=== PATIENT | male | born 1945 | race Caucasian/White ===

== ENCOUNTER 2019-05-27 10:03 | Inpatient (IN) | payer MEDICARE, OTHER ==
[~2019-05-27] VITALS: Ht 182.9 cm; Wt 80.9 kg
[2019-05-27] VITALS (14 sets, daily range): BP systolic 113–141; BP diastolic 68–86
[~2019-05-27 10:03] MED LIST: insulin glargine (Lantus) pen - multi-dose SQ PRN
--- NOTE | 2019-05-27 10:20 | NUR ---
Patient in room ICU 2040. I have received report from ANTWON Hamilton from [facility] and had the opportunity to ask questions and assume patient care.
[2019-05-27] MEDS ORDERED: potassium Cl 2 mEq/ml inj IV ONE (11:00)
[2019-05-27] MEDS ORDERED: MESSAGE TO NURSING PO ONE ×4 (11:05)
[2019-05-27] MEDS ORDERED: dextrose 50%-water 50ml dispensing syringe IV PRN (11:05)
[2019-05-27] MEDS ORDERED: cefazolin/dext.iso 2gm/50ml 50 ML IV ONE (11:05)
[2019-05-27] MEDS ORDERED: phenylephrine 10mg/ml inj. ONE (12:00)
[2019-05-27] MEDS ORDERED: albumin (human) 25% 100 ML IV solution IV ONE (12:00)
[2019-05-27] MEDS ORDERED: LIDOcaine 2% (20 mg/ml) 5ml cardiac syringe ONE (12:00)
[2019-05-27] MEDS ORDERED: MAGNESIUM SULFATE 4 MEQ/ML (5gm/10ml) injection ONE (12:00)
[2019-05-27] MEDS ORDERED: heparin 10,000 units/1 ML INJ ONE (12:00)
[2019-05-27] MEDS ORDERED: heparin 1,000 units/ml 10ml inj ONE (12:00)
[2019-05-27] MEDS ORDERED: aminocaproic acid 250 MG/1 ML inj. ONE (12:00)
[2019-05-27] MEDS ORDERED: sodium bicarbonate (8.4%) 1 mEq/ml syringe ONE (12:00)
[2019-05-27] MEDS ORDERED: calcium chloride 100 MG/1 ML inj IV ONE (12:00)
[2019-05-27 12:01] LABS: HEMATOCRIT 40.8 % (42.0-52.0); MEAN CORPUSCULAR HEMOGLOBIN 33.5 PG (27.0-31.0); MEAN CORPUSCULAR HGB CONC 34.4 g/dL (33.0-36.5); MEAN CORPUSCULAR VOLUME 97.2 FL (78-98); MEAN PLATELET VOLUME 8.1 FL (7.4-10.4); PLATELET COUNT 138 X10'3 (140-440); RED BLOOD COUNT 4.19 X10'6 (4.70-6.10); RED CELL DISTRIBUTION WIDTH 12.8 % (11.5-14.5); WHITE BLOOD COUNT 4.8 X10'3 (4.5-11.0)
[2019-05-27 12:09] LABS: ALBUMIN 3.3 G/DL (3.4-5.0); ANION GAP 6 (8-16); BLOOD UREA NITROGEN 8 MG/DL (7-18); BUN/CREATININE RATIO 8.3 (5.4-32.0); CALCIUM 8.6 MG/DL (8.5-10.1); CHLORIDE 111 MMOL/L (99-107); CREATININE 0.96 MG/DL (0.60-1.10); GLUCOSE 99 MG/DL (70-104); POTASSIUM 4.5 MMOL/L (3.5-5.1); SODIUM 145 MMOL/L (135-145); TOTAL CARBON DIOXIDE 27.7 MMOL/L (24-32); eGFR 77 ML/MIN
[2019-05-27 12:12] LABS: PARTIAL THROMBOPLASTIN TIME 27 SECONDS (22-32)
[2019-05-27 12:14] LABS: HEMOGLOBIN A1C 5.4 % (4.5-6.2)
[2019-05-27 14:24] LABS: CLARITY,URINE CLEAR (Clear); COLOR,URINE STRAW (Yellow); GLUCOSE, URINE NEGATIVE (Neg); KETONES,URINE NEGATIVE (Neg); LEUKOCYTE ESTERASE ,URINE NEGATIVE (Neg); NITRITES, URINE NEGATIVE (Neg); OCCULT BLOOD,URINE NEGATIVE (Neg); PROTEIN,URINE NEGATIVE (Neg); UROBILINOGEN,URINE 0.2 E.U/dL (0.2-1.0)
[2019-05-27 14:31] LABS: UA COLLECTION TYPE NON-SPECIFIED
--- NOTE | 2019-05-27 14:59 | NUR ---
Received pt from [facility] via EMS. pt is awake and alert, oriented x4, sinus yobany, asymptomatic. no c/o chest pain, not in resp distress. right groin site with gauze c/d/i, no drainage noted, no hematoma. doppler pulses obtained to b/l LEs. no c/o numbness and tingling. Dr. Street at bedside with patient and family, updated on plan of care. CABG tmr am. pt tolerating PO diet without nausea or vomiting. voiding clear yellow urine into urinal.
[2019-05-27 15:16] LABS: ABG BASE EXCESS -0.2 mmol/L (-2.0-3.0); ABG HCO3 23.4 mmol/L (22.0-26.0); ABG OXYGEN SATURATION 95.8 % (95-98); ABG PCO2 (T) 35.4 mmHg (35.0-45.0); ABG PH (T) 7.439 (7.350-7.450); ABG PO2 (T) 80.3 mmHg (83-108); FCOHb 0.4 % (0.5-1.5); FMetHb 0.2 % (0.3-1.12); FO2Hb 95.2 % (94-100); RESPIRATORY RATE (OBSERVED) 16 b/min; TOTAL HEMOGLOBIN 14.9 G/dl (14.0-17.9)
[2019-05-27] MEDS ORDERED: NO HOME MEDS (16:24)
--- NOTE | 2019-05-27 18:40 | NUR ---
Problems reprioritized. Patient report given, questions answered & plan of care reviewed with ANTWON Celaya.
[2019-05-27] MEDS ORDERED: metoprolol tartrate 12.5mg (1/2 tablet) PO SCH (20:00)
[2019-05-27] MEDS: gabapentin 400mg capsule PO ONE (20:00)
[2019-05-27] MEDS: mupirocin 2% ointment 22GM NS SCH (20:59)
[2019-05-28] VITALS (22 sets, daily range): BP systolic 94–140; BP diastolic 41–78
[2019-05-28 03:48] LABS: BASOPHILS % (AUTO) 0.4 % (0-1); EOSINOPHILS # (AUTO) 0.2 X10'3 (0-0.9); LYMPHOCYTES # (AUTO) 1.6 X10'3 (1.1-4.8); MONOCYTES # (AUTO) 0.6 X10'3 (0-0.9); PRE OP HEMOGLOBIN 14.2 g/dL (14.0-17.9); RED CELL DISTRIBUTION WIDTH 12.8 % (11.5-14.5)
[2019-05-28 03:54] LABS: EOSINOPHILS % (AUTO) 4.2 % (0-6); LYMPHOCYTES % (AUTO) 28.3 % (21-51); MEAN CORPUSCULAR HEMOGLOBIN 33.1 PG (27.0-31.0); MEAN CORPUSCULAR HGB CONC 34.3 g/dL (33.0-36.5); MEAN CORPUSCULAR VOLUME 96.4 FL (78-98); MEAN PLATELET VOLUME 8.3 FL (7.4-10.4); NEUTROPHILS # (AUTO) 3.2 X10'3 (1.8-7.7); NEUTROPHILS % (AUTO) 57.1 % (42-75); PRE OP HEMATOCRIT 41.4 % (42.0-52.0); PRE OP PLATELET COUNT 131 X10'3 (140-440)
[2019-05-28 04:04] LABS: ALBUMIN 3.1 G/DL (3.4-5.0); ANION GAP 5 (8-16); BLOOD UREA NITROGEN 10 MG/DL (7-18); BUN/CREATININE RATIO 10.1 (5.4-32.0); CALCIUM 8.8 MG/DL (8.5-10.1); CHLORIDE 109 MMOL/L (99-107); CREATININE 0.99 MG/DL (0.60-1.10); GLUCOSE 102 MG/DL (70-104); SODIUM 143 MMOL/L (135-145); TOTAL CARBON DIOXIDE 28.9 MMOL/L (24-32); eGFR 74 ML/MIN
[2019-05-28 04:30] LABS: PRE OP PROTIME 10.5 SECONDS (9.0-12.0)
[2019-05-28] MEDS ORDERED: ROPIVAcaine 0.5% (5mg/ml) 30ml vial ONE (05:02)
[2019-05-28] MEDS ORDERED: vancomycin/NS 1 GM ADD-VANTAGE 250 ML IV ONE (05:30)
[2019-05-28] MEDS ORDERED: insulin glargine (Lantus) pen - multi-dose SQ PRN (05:30)
[2019-05-28] MEDS: mupirocin 2% ointment 22GM NS SCH (05:30)
[2019-05-28] MEDS ORDERED: insulin regular, human 100 UNIT in normal saline 100ml IV soln 100 ML IV SCH ×2 (05:30)
[2019-05-28] MEDS ORDERED: NUT.TX.IMPAIRED DIGEST FXN (Ensure Clear) 237 ML PO ONE (05:30)
[2019-05-28] MEDS ORDERED: cefazolin/dext.iso 2gm/50ml 50 ML IV ONE (05:30)
[2019-05-28] MEDS ORDERED: famotidine 20mg tablet PO ONE (06:00)
[2019-05-28] MEDS ORDERED: LORazepam 2 mg/ml vial IV ONE (06:00)
[2019-05-28] MEDS ORDERED: papaverine 30 mg/ml 2ml inj. IA ONE (06:02)
[2019-05-28] MEDS ORDERED: heparin 10,000 units/1 ML INJ IR ONE (06:02)
[2019-05-28] MEDS: gabapentin 400mg capsule PO ONE (06:05)
--- NOTE | 2019-05-28 06:40 | NUR ---
Patient in room ICU 2040. I have received report from MANOLO and had the opportunity to ask questions and assume patient care. CVOR HERE- CONSENTS SIGNED. ATIVAN GIVEN. PT AWAKE AND ALERT. AT BS. TO OR BY BED
[2019-05-28] MEDS ORDERED: sevoflurane 250ml liquid IH ONE (06:56)
[2019-05-28] MEDS ORDERED: protamine sulf. 10mg/ml inj. IV ONE (06:56)
[2019-05-28] MEDS ORDERED: rocuronium 10mg/ml inj IV ONE ×4 (06:56→10:42)
[2019-05-28] MEDS ORDERED: midazolam 2 mg/2 ml injection ONE ×2 (06:59)
[2019-05-28] MEDS ORDERED: SUFENTANIL CITRATE 50 MCG/ML 2ml ampule IV ONE (06:59)
[2019-05-28 07:40] LABS: ABG BASE EXCESS -1.9 mmol/L (-2.0-3.0); ABG HCO3 21.9 mmol/L (22.0-26.0); ABG OXYGEN SATURATION 99.4 % (95-98); ABG PCO2 34.6 mmHg (35.0-45.0); ABG PH 7.419 (7.350-7.450); ABG PO2 318.5 mmHg (60.0-100.0); CL (ABG) 105 mmol/L (99-107); FCOHb 0.8 % (0.5-1.5); FMetHb 0.3 % (0.3-1.12); FO2Hb 98.3 % (94-100); GLUCOSE (ABG) 105 mg/dl (70-104); IONIZED CA (ABG) 1.16 mmol/L (1.03-1.32); K (ABG) 4.1 mmol/L (3.3-5.1); NA (ABG) 138 mmol/L (135-145); TOTAL HEMOGLOBIN 13.6 G/dl (14.0-17.9)
[2019-05-28 08:26] LABS: ABG HCO3 VENOUS 23.7 mmol/L; ABG PCO2 VENOUS 48.9 mmHg; ABG PO2 VENOUS 51.7 mmHg; CL (ABG) 104 mmol/L (99-107); FCOHb VENOUS 0.9 %; FHHb VENOUS 16.4 %; FMetHb VENOUS 0.3 %; FO2Hb VENOUS 82.4 %; GLUCOSE (ABG) 107 mg/dl (70-104); IONIZED CA (ABG) 1.15 mmol/L (1.03-1.32); K (ABG) 4.1 mmol/L (3.3-5.1); NA (ABG) 137 mmol/L (135-145); TOTAL HEMOGLOBIN 13.3 G/dl (14.0-17.9)
[2019-05-28 08:40] LABS: ABG BASE EXCESS -1.1 mmol/L (-2.0-3.0); ABG HCO3 23.3 mmol/L (22.0-26.0); ABG PCO2 37.4 mmHg (35.0-45.0); ABG PH 7.412 (7.350-7.450); ABG PO2 379.8 mmHg (60.0-100.0); CL (ABG) 102 mmol/L (99-107); FCOHb 0.3 % (0.5-1.5); FMetHb 0.2 % (0.3-1.12); FO2Hb 98.5 % (94-100); GLUCOSE (ABG) 115 mg/dl (70-104); IONIZED CA (ABG) 0.96 mmol/L (1.03-1.32); NA (ABG) 137 mmol/L (135-145); TOTAL HEMOGLOBIN 10.9 G/dl (14.0-17.9)
[2019-05-28 09:06] LABS: ABG BASE EXCESS -1.2 mmol/L (-2.0-3.0); ABG HCO3 22.9 mmol/L (22.0-26.0); ABG OXYGEN SATURATION 99.2 % (95-98); ABG PCO2 36.3 mmHg (35.0-45.0); ABG PH 7.418 (7.350-7.450); ABG PO2 359.1 mmHg (60.0-100.0); CL (ABG) 103 mmol/L (99-107); FCOHb 0.3 % (0.5-1.5); FMetHb 0.1 % (0.3-1.12); FO2Hb 98.8 % (94-100); GLUCOSE (ABG) 136 mg/dl (70-104); IONIZED CA (ABG) 1.06 mmol/L (1.03-1.32); K (ABG) 5.6 mmol/L (3.3-5.1); NA (ABG) 135 mmol/L (135-145); TOTAL HEMOGLOBIN 11.6 G/dl (14.0-17.9)
[2019-05-28 09:45] LABS: ABG BASE EXCESS 0.4 mmol/L (-2.0-3.0); ABG HCO3 25.9 mmol/L (22.0-26.0); ABG OXYGEN SATURATION 99.2 % (95-98); ABG PCO2 45.1 mmHg (35.0-45.0); ABG PH 7.377 (7.350-7.450); ABG PO2 343.1 mmHg (60.0-100.0); CL (ABG) 103 mmol/L (99-107); FCOHb 0.2 % (0.5-1.5); FMetHb 0.1 % (0.3-1.12); FO2Hb 98.9 % (94-100); GLUCOSE (ABG) 152 mg/dl (70-104); IONIZED CA (ABG) 1.06 mmol/L (1.03-1.32); K (ABG) 5.4 mmol/L (3.3-5.1); NA (ABG) 136 mmol/L (135-145); TOTAL HEMOGLOBIN 11.8 G/dl (14.0-17.9)
[2019-05-28] MEDS ORDERED: MESSAGE TO NURSING PO ONE (10:00)
[2019-05-28 10:30] LABS: ABG BASE EXCESS VENOUS -0.5 mmol/L; ABG HCO3 VENOUS 24.7 mmol/L; ABG PCO2 VENOUS 42.8 mmHg; ABG PO2 VENOUS 40.1 mmHg; CL (ABG) 104 mmol/L (99-107); FCOHb VENOUS 0.9 %; FHHb VENOUS 25.3 %; FMetHb VENOUS 0.4 %; FO2Hb VENOUS 73.4 %; GLUCOSE (ABG) 160 mg/dl (70-104); IONIZED CA (ABG) 1.22 mmol/L (1.03-1.32); K (ABG) 4.8 mmol/L (3.3-5.1); NA (ABG) 135 mmol/L (135-145)
[2019-05-28] MEDS ORDERED: acetaminophen 1,000mg/100ml IV 100 ML IV ONE (10:36)
[2019-05-28] MEDS ORDERED: propofol inj 20 ML IV ONE (10:42)
[2019-05-28] MEDS ORDERED: pantoprazole 40 MG vial IV ONE (10:55)
[2019-05-28] MEDS ORDERED: sodium phosphate inj. 15 MMOL in dextrose 5%-water 150 ML IV PRN (10:55)
[2019-05-28] MEDS ORDERED: sodium phosphate inj. 30 MMOL in dextrose 5%-water 250 ML IV PRN (10:55)
[2019-05-28] MEDS ORDERED: magnesium hydroxide 30ml (MOM) UD suspension PO PRN (10:55)
[2019-05-28] MEDS ORDERED: niCARDipine-NS 40mg/200ml IVPB 200 ML IV PRN (10:55)
[2019-05-28] MEDS ORDERED: metoclopramide 5 mg/ml inj IV PRN (10:55)
[2019-05-28] MEDS ORDERED: magnesium 2GM in 50ml NS 50 ML IV PRN (10:55)
[2019-05-28] MEDS ORDERED: Neutra Phos packet PO PRN (10:55)
[2019-05-28] MEDS ORDERED: dextrose 50%-water 50ml dispensing syringe IV PRN (10:55)
[2019-05-28] MEDS ORDERED: DOPamine 400mg/D5W 250ml 250 ML IV PRN (10:55)
[2019-05-28] MEDS ORDERED: nitroGLYCERIN-Tridil 50MG/D5W 250 ML IV PRN (10:55)
[2019-05-28] MEDS ORDERED: acetaminophen 325mg tablet PO PRN (10:55)
[2019-05-28] MEDS ORDERED: HYDROcodone/acetaminophen 10/325mg tab PO PRN (10:55)
[2019-05-28] MEDS ORDERED: potassium Cl 20 mEq SR tablet PO PRN (10:55)
[2019-05-28] MEDS ORDERED: ondansetron/PF 4mg/2ml inj IV PRN (10:55)
[2019-05-28] MEDS ORDERED: morphine 4 MG/ML inj SYRINge IV PRN ×2 (10:55)
[2019-05-28] MEDS: insulin regular, human inj. 100 UNITS in normal saline 100ml IV soln 100 ML IV SCH ×2 (10:55)
[2019-05-28] MEDS ORDERED: sodium chloride 0.45% 1,000 ML IV SCH (10:55)
[2019-05-28] MEDS ORDERED: normal saline 250ml IV soln 250 ML IV PRN (10:55)
[2019-05-28] MEDS ORDERED: magnesium 4gm in 100ml NS 100 ML IV PRN (10:55)
--- NOTE | 2019-05-28 11:00 | NUR ---
Received to room [], accompanied by MDs [] and surgical crew. Placed on ventilator, to nurse monitoring, arterial line and PA line pressure monitored. Chest tubes to suction at 20 cm. Hendrickson cath to gravity drainage. Dressings are dry and intact. See assessment record. All vasoactive drugs are infusing via central line.
--- NOTE | 2019-05-28 11:17 | NUR ---
Nutrition consult: Pt s/p CABG x 4 today. Will need nutrition therapy education prior to discharge once stable. Will continue to follow. Addendum: 05/28/19 at [address] Amended: Links added.
[2019-05-28 11:21] LABS: ABG BASE EXCESS -8.3 mmol/L (-2.0-3.0); ABG HCO3 15.8 mmol/L (22.0-26.0); ABG OXYGEN SATURATION 98.4 % (95-98); ABG PCO2 (T) 28.7 mmHg (35.0-45.0); ABG PO2 (T) 171.2 mmHg (83-108); FCOHb 0.3 % (0.5-1.5); FLOW 40 L/min; FMetHb 0.2 % (0.3-1.12); FO2Hb 97.9 % (94-100); MINUTE VOLUME 7 L/min; PEEP 5 cm H2O; RESPIRATORY RATE 12 b/min; RESPIRATORY RATE (OBSERVED) 12 b/min; TIDAL VOLUME 500 mL; TOTAL HEMOGLOBIN 11.5 G/dl (14.0-17.9)
[2019-05-28] MEDS: albumin (Human) 5% 250ml 250 ML IV PRN ×3 (11:28→16:23)
[2019-05-28 11:31] LABS: BASOPHILS % (AUTO) 0.1 % (0-1); EOSINOPHILS # (AUTO) 0.1 X10'3 (0-0.9); EOSINOPHILS % (AUTO) 0.8 % (0-6); HEMATOCRIT 39.5 % (42.0-52.0); HEMOGLOBIN 13.6 g/dl (14.0-17.9); LYMPHOCYTES # (AUTO) 0.7 X10'3 (1.1-4.8); LYMPHOCYTES % (AUTO) 7.4 % (21-51); MEAN CORPUSCULAR HEMOGLOBIN 33.2 PG (27.0-31.0); MEAN CORPUSCULAR HGB CONC 34.3 g/dL (33.0-36.5); MEAN CORPUSCULAR VOLUME 96.8 FL (78-98); MONOCYTES # (AUTO) 0.5 X10'3 (0-0.9); MONOCYTES % (AUTO) 5.4 % (2-12); NEUTROPHILS # (AUTO) 8.2 X10'3 (1.8-7.7); NEUTROPHILS % (AUTO) 86.3 % (42-75); PLATELET COUNT 89 X10'3 (140-440); RED BLOOD COUNT 4.08 X10'6 (4.70-6.10); RED CELL DISTRIBUTION WIDTH 12.4 % (11.5-14.5); WHITE BLOOD COUNT 9.5 X10'3 (4.5-11.0)
[2019-05-28 11:38] LABS: ALANINE AMINOTRANSFERASE 22 U/L (12-78); ALBUMIN 2.6 G/DL (3.4-5.0); ALBUMIN/GLOBULIN RATIO 1.3 (1.1-1.5); ALKALINE PHOSPHATASE 33 IU/L (46-116); ANION GAP 7 (8-16); ASPARTATE AMINO TRANSFERASE 26 U/L (10-37); BILIRUBIN,TOTAL 0.6 MG/DL (0.1-1.0); BLOOD UREA NITROGEN 10 MG/DL (7-18); BUN/CREATININE RATIO 11.5 (5.4-32.0); CALCIUM 9.6 MG/DL (8.5-10.1); CHLORIDE 109 MMOL/L (99-107); CREATININE 0.87 MG/DL (0.60-1.10); GLUCOSE 160 MG/DL (70-104); MAGNESIUM 2.9 MG/DL (1.5-2.4); PHOSPHORUS 2.8 MG/DL (2.3-4.5); POTASSIUM 3.9 MMOL/L (3.5-5.1); SODIUM 141 MMOL/L (135-145); TOTAL CARBON DIOXIDE 25.1 MMOL/L (24-32); TOTAL PROTEIN 4.6 G/DL (6.4-8.2); eGFR 86 ML/MIN
[2019-05-28 11:39] LABS: PARTIAL THROMBOPLASTIN TIME 33 SECONDS (22-32)
[2019-05-28] MEDS: insulin Lispro (HumaLOG) vial - multi-dose SQ SCH ×2 (13:00→15:11)
--- NOTE | 2019-05-28 13:00 | NUR ---
pa pressures and cvp slightly improved after 2 bottles of albumin. dopamine on- up and down for decreaded bp when pt awake and anxious. hr occ to 59. pt opens eyes and nods to no pain- reoriented. then back to sleep.
[2019-05-28] MEDS: potassium Cl 20mEq/100mL bag 100 ML IV PRN ×2 (13:12→15:09)
[2019-05-28] MEDS: gabapentin 300mg capsule PO SCH ×2 (13:12→21:26)
[2019-05-28] MEDS: ceFAZolin 1GM/D5W- ADD-VANTAGE 50 ML IV SCH ×2 (15:11→23:59)
--- NOTE | 2019-05-28 16:00 | NUR ---
pt awake to speech, calm, denies pain- repositioned- on spont. dopamine up and down for bp, ci 3.2, pressures down- 3rd albumin given
[2019-05-28 16:56] LABS: ABG BASE EXCESS -6.3 mmol/L (-2.0-3.0); ABG HCO3 18.1 mmol/L (22.0-26.0); ABG OXYGEN SATURATION 94.8 % (95-98); ABG PCO2 (T) 32.1 mmHg (35.0-45.0); ABG PH (T) 7.369 (7.350-7.450); FCOHb 0.2 % (0.5-1.5); FMetHb 0.2 % (0.3-1.12); FO2Hb 94.4 % (94-100); MINUTE VOLUME 7 L/min; PEEP 5 cm H2O; TIDAL VOLUME 534 mL; TOTAL HEMOGLOBIN 10.5 G/dl (14.0-17.9)
--- NOTE | 2019-05-28 17:00 | NUR ---
update to dr ni by phone re adequate ci of 3.2 with decreased bp of 90's up to 115 with 3rd albumin and dopamine at 3 to 5 mcg. dopamine changed to levophed from 3 to 1mcg. abgs given to dr ni- aware of hco2 of 18- ok to wxtubate with the abgs reportd
[2019-05-28] MEDS ORDERED: NORepinephrine 8mg/ 250ml NS 250 ML IV ONE (17:04)
--- NOTE | 2019-05-28 17:51 | NUR ---
ABG VALUES GIVEN TO MD DR MIN AND EXTUBATION ORDERS GIVEN OVER PHONE TO ANTWON HAYES Addendum: 05/28/19 at 1751 by Bertha Carballo RT Amended: Links added.
[2019-05-28 18:04] LABS: BASOPHILS % (AUTO) 0 % (0-1); EOSINOPHILS % (AUTO) 0 % (0-6); HEMOGLOBIN 10.7 g/dl (14.0-17.9); LYMPHOCYTES # (AUTO) 0.3 X10'3 (1.1-4.8); LYMPHOCYTES % (AUTO) 2.2 % (21-51); MEAN CORPUSCULAR HGB CONC 34.5 g/dL (33.0-36.5); MEAN CORPUSCULAR VOLUME 95.7 FL (78-98); MEAN PLATELET VOLUME 8.1 FL (7.4-10.4); MONOCYTES # (AUTO) 0.6 X10'3 (0-0.9); MONOCYTES % (AUTO) 4.6 % (2-12); NEUTROPHILS # (AUTO) 11.3 X10'3 (1.8-7.7); NEUTROPHILS % (AUTO) 93.2 % (42-75); PLATELET COUNT 89 X10'3 (140-440); RED BLOOD COUNT 3.24 X10'6 (4.70-6.10); RED CELL DISTRIBUTION WIDTH 12.6 % (11.5-14.5); WHITE BLOOD COUNT 12.1 X10'3 (4.5-11.0)
[2019-05-28 18:14] LABS: ALBUMIN 3.2 G/DL (3.4-5.0); ANION GAP 7 (8-16); BLOOD UREA NITROGEN 10 MG/DL (7-18); BUN/CREATININE RATIO 10.9 (5.4-32.0); CALCIUM 7.7 MG/DL (8.5-10.1); CHLORIDE 113 MMOL/L (99-107); CREATININE 0.92 MG/DL (0.60-1.10); GLUCOSE 202 MG/DL (70-104); MAGNESIUM 1.9 MG/DL (1.5-2.4); PHOSPHORUS 2.6 MG/DL (2.3-4.5); POTASSIUM 4.6 MMOL/L (3.5-5.1); SODIUM 143 MMOL/L (135-145); TOTAL CARBON DIOXIDE 23.5 MMOL/L (24-32); eGFR 81 ML/MIN
--- NOTE | 2019-05-28 18:30 | NUR ---
Patient in room ICU 2040. I have received report from Susan KAPOOR and had the opportunity to ask questions and assume patient care.
[2019-05-28] MEDS: docusate sod 100mg capsule PO SCH (20:06)
[2019-05-28] MEDS: vancomycin/NS 1 GM ADD-VANTAGE 250 ML IV SCH (20:06)
[2019-05-28] MEDS: mupirocin 2% nasal ointment 1gm UD NS SCH (20:06)
[2019-05-28] MEDS: HYDROcodone/acetaminophen 10/325mg tab PO PRN (20:07)
[2019-05-29] VITALS (24 sets, daily range): BP systolic 89–125; BP diastolic 35–75
[2019-05-29 02:37] LABS: BASOPHILS % (AUTO) 0 % (0-1); EOSINOPHILS % (AUTO) 0 % (0-6); HEMATOCRIT 30.4 % (42.0-52.0); HEMOGLOBIN 10.3 g/dl (14.0-17.9); LYMPHOCYTES # (AUTO) 0.5 X10'3 (1.1-4.8); LYMPHOCYTES % (AUTO) 3.2 % (21-51); MEAN CORPUSCULAR HEMOGLOBIN 32.5 PG (27.0-31.0); MEAN CORPUSCULAR VOLUME 95.7 FL (78-98); MEAN PLATELET VOLUME 8.5 FL (7.4-10.4); MONOCYTES # (AUTO) 1.3 X10'3 (0-0.9); MONOCYTES % (AUTO) 8.6 % (2-12); NEUTROPHILS # (AUTO) 13.1 X10'3 (1.8-7.7); NEUTROPHILS % (AUTO) 88.2 % (42-75); PLATELET COUNT 97 X10'3 (140-440); RED BLOOD COUNT 3.18 X10'6 (4.70-6.10); RED CELL DISTRIBUTION WIDTH 12.5 % (11.5-14.5); WHITE BLOOD COUNT 14.9 X10'3 (4.5-11.0)
[2019-05-29 02:39] LABS: PARTIAL THROMBOPLASTIN TIME 31 SECONDS (22-32)
[2019-05-29 02:46] LABS: ALANINE AMINOTRANSFERASE 23 U/L (12-78); ALBUMIN/GLOBULIN RATIO 1.6 (1.1-1.5); ALKALINE PHOSPHATASE 24 IU/L (46-116); ANION GAP 6 (8-16); ASPARTATE AMINO TRANSFERASE 33 U/L (10-37); BILIRUBIN,TOTAL 0.5 MG/DL (0.1-1.0); BLOOD UREA NITROGEN 10 MG/DL (7-18); BUN/CREATININE RATIO 10.5 (5.4-32.0); CHLORIDE 112 MMOL/L (99-107); CREATININE 0.95 MG/DL (0.60-1.10); GLUCOSE 145 MG/DL (70-104); MAGNESIUM 2.4 MG/DL (1.5-2.4); PHOSPHORUS 3.4 MG/DL (2.3-4.5); POTASSIUM 4.1 MMOL/L (3.5-5.1); SODIUM 143 MMOL/L (135-145); TOTAL CARBON DIOXIDE 25.2 MMOL/L (24-32); TOTAL PROTEIN 4.9 G/DL (6.4-8.2); eGFR 78 ML/MIN
[2019-05-29] MEDS: potassium Cl 20mEq/100mL bag 100 ML IV PRN ×2 (02:59→04:05)
[2019-05-29] MEDS: HYDROcodone/acetaminophen 10/325mg tab PO PRN (03:04)
--- NOTE | 2019-05-29 06:13 | NUR ---
Increased PACs mid shift. Labs drawn at 0200, Mg and K replaced per protocol and ectopy resolved.
--- NOTE | 2019-05-29 06:21 | NUR ---
Problems reprioritized. Patient report given, questions answered & plan of care reviewed with Amado KAPOOR.
--- NOTE | 2019-05-29 06:30 | NUR ---
Patient in room ICU 2040. I have received report from ANTWON Morfin and had the opportunity to ask questions and assume patient care.
--- NOTE | 2019-05-29 06:30 | NUR ---
Patient in room ICU 2040. I have received report from ANTWON Morfin and had the opportunity to ask questions and assume patient care.
--- NOTE | 2019-05-29 07:30 | NUR ---
Discontinued PA line and arterial line. Small hematoma formed right radial site, manual pressure held for additional 15 mins. Leg wrap to right leg discontinued.
[2019-05-29] MEDS: metoprolol tartrate 12.5mg (1/2 tablet) PO SCH ×2 (08:00→20:40)
[2019-05-29] MEDS ORDERED: aspirin 325mg tablet, delayed-release (Ecotrin) PO SCH (08:00)
[2019-05-29] MEDS: insulin Lispro (HumaLOG) vial - multi-dose SQ SCH ×3 (09:00→18:00)
[2019-05-29] MEDS: atorvastatin 10mg tablet PO SCH (09:42)
[2019-05-29] MEDS: gabapentin 300mg capsule PO SCH ×3 (09:42→20:36)
[2019-05-29] MEDS: docusate sod 100mg capsule PO SCH ×2 (09:42→20:35)
[2019-05-29] MEDS: mupirocin 2% nasal ointment 1gm UD NS SCH ×2 (09:43→20:36)
[2019-05-29] MEDS: ceFAZolin 1GM/D5W- ADD-VANTAGE 50 ML IV SCH ×3 (09:43→23:55)
[2019-05-29] MEDS: insulin regular, human inj. 100 UNITS in normal saline 100ml IV soln 100 ML IV SCH ×2 (10:55)
[2019-05-29] MEDS: vancomycin/NS 1 GM ADD-VANTAGE 250 ML IV SCH ×2 (11:49→20:31)
[2019-05-29] MEDS: ketorolac tromethamine 15mg/ml inj. IV PRN ×2 (12:26→20:40)
[2019-05-29] MEDS ORDERED: ketorolac tromethamine 15mg/ml inj. IV SCH (14:00)
--- NOTE | 2019-05-29 18:30 | NUR ---
Patient in room ICU 2040. I have received report from ANTWON Fischer and had the opportunity to ask questions and assume patient care.
--- NOTE | 2019-05-29 18:43 | NUR ---
Problems reprioritized. Patient report given, questions answered & plan of care reviewed with ANTWON Basilio.
[2019-05-29] MEDS ORDERED: lactobacillus rhamnosus 10,000 MMU CELLS/CAPSULE PO SCH (20:00)
[2019-05-30] VITALS (26 sets, daily range): BP systolic 88–133; BP diastolic 49–78
[2019-05-30 05:05] LABS: ACT @ 1.70 U 249 SEC (193-297); ACT @ 2.84 U 357 SEC (260-420); BASELINE ACT 144 SEC (101-148); PATIENT WEIGHT 80.0k KG
[2019-05-30 06:01] LABS: BASOPHILS % (AUTO) 0.1 % (0-1); EOSINOPHILS % (AUTO) 0 % (0-6); HEMATOCRIT 27.1 % (42.0-52.0); HEMOGLOBIN 9.3 g/dl (14.0-17.9); LYMPHOCYTES # (AUTO) 0.6 X10'3 (1.1-4.8); LYMPHOCYTES % (AUTO) 5.6 % (21-51); MEAN CORPUSCULAR HEMOGLOBIN 33.3 PG (27.0-31.0); MEAN CORPUSCULAR HGB CONC 34.2 g/dL (33.0-36.5); MEAN CORPUSCULAR VOLUME 97.4 FL (78-98); MEAN PLATELET VOLUME 9.2 FL (7.4-10.4); MONOCYTES # (AUTO) 1.1 X10'3 (0-0.9); MONOCYTES % (AUTO) 10.1 % (2-12); NEUTROPHILS # (AUTO) 9.1 X10'3 (1.8-7.7); NEUTROPHILS % (AUTO) 84.2 % (42-75); PLATELET COUNT 68 X10'3 (140-440); RED BLOOD COUNT 2.78 X10'6 (4.70-6.10); RED CELL DISTRIBUTION WIDTH 12.8 % (11.5-14.5); WHITE BLOOD COUNT 10.8 X10'3 (4.5-11.0)
[2019-05-30 06:18] LABS: ALBUMIN 2.8 G/DL (3.4-5.0); ANION GAP 5 (8-16); BLOOD UREA NITROGEN 14 MG/DL (7-18); BUN/CREATININE RATIO 18.2 (5.4-32.0); CALCIUM 8.1 MG/DL (8.5-10.1); CHLORIDE 111 MMOL/L (99-107); CREATININE 0.77 MG/DL (0.60-1.10); GLUCOSE 141 MG/DL (70-104); MAGNESIUM 2.1 MG/DL (1.5-2.4); PHOSPHORUS 3.2 MG/DL (2.3-4.5); POTASSIUM 4.9 MMOL/L (3.5-5.1); SODIUM 142 MMOL/L (135-145); TOTAL CARBON DIOXIDE 26.4 MMOL/L (24-32); eGFR > 90 ML/MIN
--- NOTE | 2019-05-30 06:25 | NUR ---
Patient in room ICU 2040. I have received report from Chetna KAPOOR and had the opportunity to ask questions and assume patient care.
--- NOTE | 2019-05-30 06:25 | NUR ---
Problems reprioritized. Patient report given, questions answered & plan of care reviewed with ANTWON iFscher.
[2019-05-30] MEDS ORDERED: potassium Cl 20 mEq SR tablet PO PRN ×2 (07:05→11:25)
[2019-05-30] MEDS ORDERED: potassium CL 10mEq/100ml bag 100 ML IV PRN ×2 (07:05)
[2019-05-30] MEDS ORDERED: magnesium 4gm in 100ml NS 100 ML IV PRN (07:05)
[2019-05-30] MEDS ORDERED: magnesium 2GM in 50ml NS 50 ML IV PRN (07:05)
[2019-05-30] MEDS ORDERED: magnesium Cl slow-release 64mg tablet PO PRN (07:05)
[2019-05-30] MEDS: magnesium Cl slow-release 64mg tablet PO SCH ×2 (07:06→07:20)
[2019-05-30] MEDS: docusate sod 100mg capsule PO SCH ×2 (07:16→21:24)
[2019-05-30] MEDS: atorvastatin 10mg tablet PO SCH (07:16)
[2019-05-30] MEDS: pantoprazole 40mg Tablet.DR PO SCH (07:17)
[2019-05-30] MEDS: aspirin 81mg tablet.DR PO SCH (07:17)
[2019-05-30] MEDS: metoprolol tartrate 12.5mg (1/2 tablet) PO SCH ×2 (07:17→21:24)
[2019-05-30] MEDS: HYDROcodone/acetaminophen 10/325mg tab PO PRN ×2 (07:18→21:23)
[2019-05-30] MEDS: gabapentin 300mg capsule PO SCH (07:18)
[2019-05-30] MEDS: mupirocin 2% nasal ointment 1gm UD NS SCH (07:18)
[2019-05-30] MEDS: potassium Cl 20 mEq SR tablet PO SCH ×2 (07:20→20:00)
[2019-05-30] MEDS: K and/or MAG REPLACEMENT MC SCH (07:20)
--- NOTE | 2019-05-30 10:53 | NUR ---
RECEIVED PATIENT AND REPORT FROM ICU. PLACED PATIENT IN ROOM 316 .ASSESSMENT COMPLETED. DENIES CHEST PAIN, SOB, AND OR, NAUSEA.UP IN CHAIR, CALL LIGHT IN REACH; PATIENT'S AT HIS SIDE. Addendum: 05/30/19 at 1104 by Mounika Sims RN Amended: Links added.
[2019-05-30] MEDS ORDERED: potassium Cl 20mEq/100mL bag 100 ML IV PRN (11:25)
[2019-05-30] MEDS: magnesium 2GM in 50ml NS 50 ML IV PRN (11:43)
[2019-05-30] MEDS ORDERED: amiodarone 150mg/dext, iso-os 100 ML IV ONE (13:20)
--- NOTE | 2019-05-30 13:43 | NUR ---
PATIENT RETURNED TO BED FROM AMBULATING IN HALLWAY. HEART RHYTHM CHANGED FROM SINUS TO ATRIAL FIBRILLATION; RATE IN THE 130'S. PHONED BEBE MIN AND APPRISED HIM OF RHYTHM CHANGE; ORDERS RECEIVED AND NOTED. CORDARONE BOLUS GIVEN, AND PLACED ON GTT PER ORDER. Addendum: 05/30/19 at 1347 by Mounika Sims RN Amended: Links added.
[2019-05-30] MEDS: amiodarone/D5 360MG/200ML BAG 200 ML IV SCH ×2 (13:48→18:36)
--- NOTE | 2019-05-30 16:16 | NUR ---
PATIENT'S HEART RATE 120'S TO 140'S . APPRISED BEBE MIN OF HEART RATE AND PATIENT'S B/P. NO NEW ORDERS AT THIS TIME. Addendum: 05/30/19 at 1623 by Mounika Sims RN Amended: Links added.
--- NOTE | 2019-05-30 18:51 | NUR ---
Patient in room MED 316. I have received report from ALIYA KAPOOR and had the opportunity to ask questions and assume patient care.
--- NOTE | 2019-05-30 20:00 | NUR ---
NOTIFIED BEBE LORENZO REGARDING PATIENT CONVERTING TO SR FROM AFIB AT 1729, REQUESTED MEDICATION ORDERS FOR CONTINUING/STOPPING AMIODARONE. BJ ORDERED TO CONTINUE AMIODARONE PER PROTOCOL UNTIL AM.
--- NOTE | 2019-05-30 21:43 | NUR ---
[place] reassessment not done previous shift.
[2019-05-31] VITALS (8 sets, daily range): BP systolic 90–121; BP diastolic 53–71
[2019-05-31] MEDS: amiodarone/D5 360MG/200ML BAG 200 ML IV SCH ×2 (04:17→12:13)
[2019-05-31 05:17] LABS: BASOPHILS % (AUTO) 0.1 % (0-1); EOSINOPHILS # (AUTO) 0.1 X10'3 (0-0.9); EOSINOPHILS % (AUTO) 1.1 % (0-6); HEMATOCRIT 25.8 % (42.0-52.0); HEMOGLOBIN 8.7 g/dl (14.0-17.9); LYMPHOCYTES # (AUTO) 1.6 X10'3 (1.1-4.8); LYMPHOCYTES % (AUTO) 21.2 % (21-51); MEAN CORPUSCULAR HEMOGLOBIN 32.8 PG (27.0-31.0); MEAN CORPUSCULAR HGB CONC 33.6 g/dL (33.0-36.5); MEAN CORPUSCULAR VOLUME 97.8 FL (78-98); MEAN PLATELET VOLUME 9.2 FL (7.4-10.4); MONOCYTES % (AUTO) 13.5 % (2-12); NEUTROPHILS # (AUTO) 4.7 X10'3 (1.8-7.7); NEUTROPHILS % (AUTO) 64.1 % (42-75); PLATELET COUNT 72 X10'3 (140-440); RED BLOOD COUNT 2.64 X10'6 (4.70-6.10); RED CELL DISTRIBUTION WIDTH 12.7 % (11.5-14.5); WHITE BLOOD COUNT 7.3 X10'3 (4.5-11.0)
[2019-05-31 05:28] LABS: ALBUMIN 2.7 G/DL (3.4-5.0); ANION GAP 5 (8-16); BLOOD UREA NITROGEN 14 MG/DL (7-18); BUN/CREATININE RATIO 16.5 (5.4-32.0); CALCIUM 8.2 MG/DL (8.5-10.1); CHLORIDE 108 MMOL/L (99-107); CREATININE 0.85 MG/DL (0.60-1.10); GLUCOSE 106 MG/DL (70-104); MAGNESIUM 1.7 MG/DL (1.5-2.4); POTASSIUM 4.4 MMOL/L (3.5-5.1); SODIUM 143 MMOL/L (135-145); TOTAL CARBON DIOXIDE 30.2 MMOL/L (24-32); eGFR 89 ML/MIN
--- NOTE | 2019-05-31 06:28 | NUR ---
Problems reprioritized. Patient report given, questions answered & plan of care reviewed with Evert KAPOOR.
--- NOTE | 2019-05-31 06:31 | NUR ---
[facility] documentation: I have reviewed and agree with all interventions, assessments performed and documented by ANTWON Lerner. [facility] Medication Administration: For this medication-pass time frame, medication were reviewed, dispensed, administered and documented per hospital policy by ANTWON Lerner.
[2019-05-31] MEDS: metoprolol tartrate 12.5mg (1/2 tablet) PO SCH ×2 (07:19→19:51)
[2019-05-31] MEDS: docusate sod 100mg capsule PO SCH ×2 (07:19→19:50)
[2019-05-31] MEDS: magnesium Cl slow-release 64mg tablet PO SCH ×2 (07:19→22:18)
[2019-05-31] MEDS: atorvastatin 10mg tablet PO SCH (07:19)
[2019-05-31] MEDS: aspirin 81mg tablet.DR PO SCH (07:19)
[2019-05-31] MEDS: pantoprazole 40mg Tablet.DR PO SCH (07:19)
[2019-05-31] MEDS: potassium Cl 20 mEq SR tablet PO PRN (07:19)
[2019-05-31] MEDS: magnesium 4gm in 100ml NS 100 ML IV PRN (07:20)
[2019-05-31] MEDS: magnesium 2GM in 50ml NS 50 ML IV PRN (07:20)
[2019-05-31] MEDS: potassium Cl 20 mEq SR tablet PO SCH ×2 (08:00→20:00)
[2019-05-31] MEDS: K and/or MAG REPLACEMENT MC SCH (08:00)
--- NOTE | 2019-05-31 08:02 | NUR ---
I have received report from Eduarda KAPOOR and Vale KAPOOR and had the opportunity to ask questions and assume patient care.
[2019-05-31] MEDS: amiodarone 200mg tablet PO SCH ×2 (09:23→19:50)
--- NOTE | 2019-05-31 12:20 | NUR ---
Initial: Pt s/p CABGx4 PO 75-100% NCS diet meeting needs. LBM 05/30 on colace. Pt unable to wake during RD visit; written CABG ed w/ RD contact information left at bedside. Will continue to monitor. Rec: 1. continue NCS diet 2. routine bowel care 3. wt per rx Addendum: 05/31/19 at [address] Amended: Links added.
--- NOTE | 2019-05-31 18:03 | NUR ---
Problems reprioritized. Patient report given, questions answered & plan of care reviewed with Eduarda KAPOOR and Cookie KAPOOR.
[2019-05-31] MEDS: HYDROcodone/acetaminophen 10/325mg tab PO PRN ×2 (18:11→22:18)
--- NOTE | 2019-05-31 18:17 | NUR ---
Patient in room MED 316. I have received report from Evert KAPOOR and had the opportunity to ask questions and assume patient care.
[2019-06-01 02:15] VITALS: BP 95/60
[2019-06-01] MEDS: HYDROcodone/acetaminophen 10/325mg tab PO PRN (04:18)
[2019-06-01 06:00] VITALS: BP 91/65
[2019-06-01 06:04] LABS: BASOPHILS % (AUTO) 0.3 % (0-1); EOSINOPHILS # (AUTO) 0.2 X10'3 (0-0.9); EOSINOPHILS % (AUTO) 3.2 % (0-6); HEMOGLOBIN 8.7 g/dl (14.0-17.9); LYMPHOCYTES # (AUTO) 1.3 X10'3 (1.1-4.8); LYMPHOCYTES % (AUTO) 22.9 % (21-51); MEAN CORPUSCULAR HEMOGLOBIN 33.3 PG (27.0-31.0); MEAN CORPUSCULAR HGB CONC 34.7 g/dL (33.0-36.5); MONOCYTES # (AUTO) 0.6 X10'3 (0-0.9); MONOCYTES % (AUTO) 10.8 % (2-12); NEUTROPHILS # (AUTO) 3.5 X10'3 (1.8-7.7); NEUTROPHILS % (AUTO) 62.8 % (42-75); PLATELET COUNT 101 X10'3 (140-440); RED CELL DISTRIBUTION WIDTH 12.5 % (11.5-14.5); WHITE BLOOD COUNT 5.5 X10'3 (4.5-11.0)
[2019-06-01 06:14] LABS: ALBUMIN 2.7 G/DL (3.4-5.0); ANION GAP 6 (8-16); BLOOD UREA NITROGEN 10 MG/DL (7-18); BUN/CREATININE RATIO 12.3 (5.4-32.0); CALCIUM 8.1 MG/DL (8.5-10.1); CHLORIDE 107 MMOL/L (99-107); CREATININE 0.81 MG/DL (0.60-1.10); GLUCOSE 101 MG/DL (70-104); SODIUM 140 MMOL/L (135-145); TOTAL CARBON DIOXIDE 27.3 MMOL/L (24-32); eGFR > 90 ML/MIN
[2019-06-01] MEDS: K and/or MAG REPLACEMENT MC SCH (06:34)
--- NOTE | 2019-06-01 06:49 | NUR ---
Patient in room MED 316. I have received report from ANTWON Gary and had the opportunity to ask questions and assume patient care.
[2019-06-01] MEDS: atorvastatin 10mg tablet PO SCH (07:51)
[2019-06-01] MEDS: pantoprazole 40mg Tablet.DR PO SCH (07:51)
[2019-06-01] MEDS: docusate sod 100mg capsule PO SCH (07:51)
[2019-06-01] MEDS: aspirin 81mg tablet.DR PO SCH (07:51)
[2019-06-01] MEDS: magnesium Cl slow-release 64mg tablet PO SCH (07:53)
[2019-06-01] MEDS: potassium Cl 20 mEq SR tablet PO PRN (07:53)
[2019-06-01] MEDS: amiodarone 200mg tablet PO SCH (07:53)
[2019-06-01 07:54] VITALS: BP_SYST 104
[2019-06-01] MEDS: magnesium 4gm in 100ml NS 100 ML IV PRN (07:54)
[2019-06-01] MEDS: metoprolol tartrate 12.5mg (1/2 tablet) PO SCH (07:54)
[2019-06-01] MEDS: potassium Cl 20 mEq SR tablet PO SCH (08:00)
[2019-06-01] MEDS ORDERED: ASPI-1071 PO (08:46)
[2019-06-01] MEDS ORDERED: METO25TA6 PO (08:46)
[2019-06-01] MEDS ORDERED: AMIO200T61 PO (08:46)
[2019-06-01] MEDS ORDERED: HYDR-4353 PO (08:46)
[2019-06-01] MEDS ORDERED: ATOR10TA PO (08:46)
[2019-06-01] MEDS ORDERED: COL100C PO (08:46)
--- NOTE | 2019-06-01 10:06 | NUR ---
Orienteer documentation: I have reviewed and agree with all interventions, assessments performed and documented by Juliana KAPOOR.
--- NOTE | 2019-06-01 10:38 | NUR ---
pt. discharged at 1008. pt. was wheeled out by staff and met by his with their personal car. all discharge paperwork was understood and signed. pt. IV was removed and intact. pt. left with all of his belongings. new medications called into [facility] on [address].
[2019-06-03] MEDS ORDERED: gabapentin 400mg capsule PO ONE (05:30)
== END 2019-06-01 10:08 | disposition home health service (06) | DRG 236 ==
LOC: ICU 2S 10:35 → MED 3N 05-30 10:36
PROVIDERS: ADMIT Thoracic Surgery (Cardiothoracic Vascular Surgery); ATTEND Thoracic Surgery (Cardiothoracic Vascular Surgery)
PROC: 021109W Bypass Coronary Artery, Two Arteries from Aorta with Autologous Venous Tissue, Open Approach (ICD-10-PCS; 2019-05-28)
PROC: 06BP4ZZ Excision of Right Saphenous Vein, Percutaneous Endoscopic Approach (ICD-10-PCS; 2019-05-28)
PROC: 5A1221Z Performance of Cardiac Output, Continuous (ICD-10-PCS; 2019-05-28)
PROC: B24BZZ4 Ultrasonography of Heart with Aorta, Transesophageal (ICD-10-PCS; 2019-05-28)
PROC: 02HV33Z Insertion of Infusion Device into Superior Vena Cava, Percutaneous Approach (ICD-10-PCS; 2019-05-28)
PROC: 4A133B3 Monitoring of Arterial Pressure, Pulmonary, Percutaneous Approach (ICD-10-PCS; 2019-05-28)
PROC: 02HP32Z Insertion of Monitoring Device into Pulmonary Trunk, Percutaneous Approach (ICD-10-PCS; 2019-05-28)
PROC: 02100Z9 Bypass Coronary Artery, One Artery from Left Internal Mammary, Open Approach (ICD-10-PCS; principal; 2019-05-28 06:56)
DX: I25.110 Atherosclerotic heart disease of native coronary artery with unstable angina pectoris (principal); I48.91 Unspecified atrial fibrillation; Z79.899 Other long term (current) drug therapy
CPT/HCPCS: 0232T; 93312; 93325; 36415; 36600; 71045; 80048; 80053; 81003; 82330; 82435; 82803; 82947; 82948; 83036; 83735; 84100; 84132; 84295; 85018; 85025; 85027; 85347; 85384; 85610; 85730; 86022; 86885; 86900; 86901; 86920; 87081; 93005; 93880; 93970; 94002; 94010; 94667; 94668; 94760; 97110; 97116; 97162; 97530; A4618; A6258; A6402; A6449; A7000; A7048; C1713; C1751; G0378; J0131; J0282; J0690; J1644; J1815; J1885; J2060; J2150; J2250; J2270; J2370; J2440; J2704; J2720; J2795; J3370; J3475; J3480; J3490; J7030; J7040; J7050; J7120; P9045; P9047

== ENCOUNTER 2020-05-26 16:10 | Emergency (ER) | payer MEDICARE, OTHER ==
[~2020-05-26] VITALS: Ht 185.4 cm; Wt 49.0 kg
[~2020-05-26 16:10] MED LIST changes: +AMIO200T61 PO; +ASPI-1071 PO; +ATOR10TA PO; +COL100C PO; +HYDR-4353 PO; +METO25TA6 PO; +NO HOME MEDS; -insulin glargine (Lantus) pen - multi-dose SQ PRN
[2020-05-26] MEDS ORDERED: LIDOcaine 1% W/epiNEPHrine 1:200,000 10ml vial IJ ONE (17:15)
[2020-05-26] MEDS ORDERED: TETanus/Pertussis (Acell)/Diphther VAC/PF (Tdap-Adult) 0.5ml syringe IMVAC ONE (17:15)
[2020-05-26 18:46] VITALS: BP 135/90
== END 2020-05-26 18:48 | disposition home or self-care (01) ==
LOC: ER 16:11
DX: S61.011A Laceration without foreign body of right thumb without damage to nail, initial encounter (principal); I25.10 Atherosclerotic heart disease of native coronary artery without angina pectoris; Z79.82 Long term (current) use of aspirin; Z79.899 Other long term (current) drug therapy; W45.8XXA Other foreign body or object entering through skin, initial encounter; Y93.89 Activity, other specified; Y92.89 Other specified places as the place of occurrence of the external cause; Y99.8 Other external cause status
CPT/HCPCS: 12002; 90471; 90715; 99283

== ENCOUNTER 2021-05-13 12:50 | Emergency (ER) | payer MEDICARE, OTHER ==
[~2021-05-13] VITALS: Ht 182.9 cm; Wt 81.8 kg
[~2021-05-13 12:50] MED LIST changes: +LOP25T PO; -METO25TA6 PO
[2021-05-13 13:42] VITALS: BP 108/73
[2021-05-13] MEDS ORDERED: ketorolac tromethamine 15mg/ml inj. IM ONE (14:30)
[2021-05-13] MEDS ORDERED: IBUP-1984 PO (14:34)
[2021-05-13] MEDS ORDERED: CYCL-1 PO (14:34)
== END 2021-05-13 14:40 | disposition home or self-care (01) ==
LOC: ER 12:53
DX: S39.011A Strain of muscle, fascia and tendon of abdomen, initial encounter (principal); M79.605 Pain in left leg; I25.10 Atherosclerotic heart disease of native coronary artery without angina pectoris; Z79.82 Long term (current) use of aspirin; Z79.899 Other long term (current) drug therapy; V19.3XXA Pedal cyclist (driver) (passenger) injured in unspecified nontraffic accident, initial encounter; Y93.89 Activity, other specified; Y92.89 Other specified places as the place of occurrence of the external cause; Y99.8 Other external cause status
CPT/HCPCS: 73502; 99283

== ENCOUNTER 2024-12-02 10:28 | Day surgery (SDC) | payer MEDICARE, OTHER ==
[~2024-12-02] VITALS: Ht 182.9 cm; Wt 83.2 kg
[2024-12-02] VITALS (9 sets, daily range): BP systolic 105–127; BP diastolic 54–81; PULSE 67–93; RESP 12–15; TEMP 98; O2SAT 95–99
[~2024-12-02 10:28] MED LIST changes: +AMI200T PO; -AMIO200T61 PO; +CYCL-1 PO
[2024-12-02] MEDS ORDERED: EZET10TA48 PO (11:27)
[2024-12-02] MEDS ORDERED: APIX5TAB3 PO (11:27)
[2024-12-02] MEDS ORDERED: FLEC100T PO (11:27)
[2024-12-02] MEDS ORDERED: EVOL140P3 SQ (11:31)
[2024-12-02 11:51] LABS: BASOPHILS % (AUTO) 0.4 % (0-1); EOSINOPHILS # (AUTO) 0.2 X10'3 (0-0.9); EOSINOPHILS % (AUTO) 4.7 % (0-6); LYMPHOCYTES # (AUTO) 1.3 X10'3 (1.1-4.8); LYMPHOCYTES % (AUTO) 24.4 % (21-51); MEAN CORPUSCULAR HEMOGLOBIN 32.3 PG (27.0-31.0); MEAN CORPUSCULAR HGB CONC 33.4 g/dL (33.0-36.5); MEAN CORPUSCULAR VOLUME 96.7 FL (78-98); MEAN PLATELET VOLUME 8.4 FL (7.4-10.4); MONOCYTES # (AUTO) 0.5 X10'3 (0-0.9); MONOCYTES % (AUTO) 10.2 % (2-12); NEUTROPHILS # (AUTO) 3.2 X10'3 (1.8-7.7); NEUTROPHILS % (AUTO) 60.3 % (42-75); PLATELET COUNT 138 X10'3 (140-440); RED BLOOD COUNT 4.34 X10'6 (4.70-6.10); RED CELL DISTRIBUTION WIDTH 13.4 % (11.5-14.5); WHITE BLOOD COUNT 5.3 X10'3 (4.5-11.0)
[2024-12-02 11:57] LABS: ALBUMIN 3.5 G/DL (3.4-5.0); ANION GAP 5 (8-16); BLOOD UREA NITROGEN 18 MG/DL (7-18); BUN/CREATININE RATIO 16.5 (10.0-20.0); CALCIUM 8.7 MG/DL (8.5-10.1); CHLORIDE 109 MMOL/L (99-107); CREATININE 1.09 MG/DL (0.60-1.10); GLUCOSE 93 MG/DL (70-104); MAGNESIUM 1.8 MG/DL (1.5-2.4); POTASSIUM 4.7 MMOL/L (3.5-5.1); SODIUM 144 MMOL/L (135-145); TOTAL CARBON DIOXIDE 30.4 MMOL/L (24-32); eCRCL 62 ML/MIN; eGFR 66 ML/MIN
[2024-12-02 11:58] LABS: INR 1.1 INR; PROTHROMBIN TIME 11.3 SECONDS (9.0-12.0)
[2024-12-02] MEDS: MIDAZolam 1mg/ml 10ml vial IV ONE (12:42)
[2024-12-02] MEDS: normal saline 1000ml 1,000 ML IV SCH (12:43)
[2024-12-02] MEDS: fentaNYL/PF 50MCG/1 ML 2ML syringe IV ONE (12:43)
== END 2024-12-02 14:45 | disposition home or self-care (01) ==
LOC: SSTAY O 10:28
PROVIDERS: ATTEND Internal Medicine Cardiovascular Disease
DX: I48.91 Unspecified atrial fibrillation (principal); I25.10 Atherosclerotic heart disease of native coronary artery without angina pectoris; E78.2 Mixed hyperlipidemia; Z79.899 Other long term (current) drug therapy; Z95.1 Presence of aortocoronary bypass graft; Z98.890 Other specified postprocedural states
CPT/HCPCS: 36415; 80048; 83735; 85025; 85610; 92960; 93005; J2250; J3010; J7030; Z7610